=== PATIENT | female | born 1950 ===

== ENCOUNTER 2017-01-20 15:37 | Emergency (ER) | payer MEDICARE, OTHER ==
[2017-01-20 15:47] VITALS: TEMP 97.8; O2SAT 100
--- NOTE | 2017-01-20 16:48 | C.PDOC ---
History Of Present Illness 66 yr old female presents to the ER for evaluation of itchy rash to the torso for the past 2 days. Patient denies new soap, detergents, fever, chills, chest pain, SOB, nausea, vomiting, weakness or numbness. Time Seen by Provider: 01/20/17 16:21 Chief Complaint (Nursing): Abnormal Skin Integrity History Per: Patient History/Exam Limitations: no limitations Onset/Duration Of Symptoms: Days (2) Current Symptoms Are (Timing): Still Present Past Medical History Reviewed: Historical Data, Nursing Documentation, Vital Signs Vital Signs: Last Vital Signs Temp 97.8 F 01/20/17 15:45 Pulse 85 01/20/17 17:10 Resp 18 01/20/17 17:10 BP 125/68 01/20/17 17:10 Pulse Ox 100 01/20/17 17:10 - Medical History PMH: Kidney Stones, Chronic Kidney Disease Surgical History: Appendectomy - [facility] Procedures REMOVAL OF INTRALUMINAL DEVICE FROM [facility]RETER, ENDO (06/07/16) Family History: States: No Known Family Hx - Social History Hx Alcohol Use: No Hx Substance Use: No - Immunization History Hx Tetanus Toxoid Vaccination: No Hx Influenza Vaccination: No Hx Pneumococcal Vaccination: No Review Of Systems Except As Marked, All Systems Reviewed And Found Negative. Constitutional: Negative for: Fever, Chills Cardiovascular: Negative for: Chest Pain Respiratory: Negative for: Shortness of Breath Gastrointestinal: Negative for: Nausea, Vomiting Skin: Positive for: Rash (Itchy rash diffusely to the torso) Neurological: Negative for: Weakness, Numbness Physical Exam - Physical Exam Appears: Non-toxic, No Acute Distress Skin: Warm, Dry, Rash (Maculopapular, erythematous rashe diffusely to the abdomen and back. No superinfection. Excoriated lesions. No vesicles. No involvment of the palms or soles.) Head: Atraumatic, Normacephalic Eye(s): bilateral: Normal Inspection, PERRL, EOMI Ear(s): Bilateral: Normal Oral Mucosa: Moist Throat: Normal, No Erythema, No Exudate, No Drooling Neck: Normal, Normal ROM, Supple Cardiovascular: Rhythm Regular, No Murmur Respiratory: Normal Breath Sounds, No Rales, No Rhonchi, No Stridor, No Wheezing Extremity: Normal ROM, No Swelling Neurological/Psych: Oriented x3, Normal Speech, Normal Motor, Normal Sensation ED Course And Treatment O2 Sat by Pulse Oximetry: 100 (RA) Pulse Ox Interpretation: Normal Medical Decision Making Medical Decision Making: IMPRESSION: Rash PLAN: * Claritin PO * Prednisone PO Disposition - Disposition Disposition: HOME/ ROUTINE Disposition Time: 16:45 Condition: STABLE Additional Instructions: follow up with your doctor in 2 days call to make an appointment take medications as prescribed return to ER if symptoms worsens or progress Prescriptions: Loratadine [Claritin] 10 mg PO DAILY PRN #15 tab PRN Reason: Other predniSONE [predniSONE Tab] 50 mg PO DAILY #4 tab Instructions: Contact Dermatitis (ED), Acute Rash (ED) Forms: General Discharge Instructions, [facility] (Scottish) - Clinical Impression Clinical Impression: Contact dermatitis - Scribe Statement The provider has reviewed the documentation as recorded by the Elizabeth Mancia Provider Attestation: All medical record entries made by the Elizabeth were at my direction and personally dictated by me. I have reviewed the chart and agree that the record accurately reflects my personal performance of the history, physical exam, medical decision making, and the department course for this patient. I have also personally directed, reviewed, and agree with the discharge instructions and disposition.
--- NOTE | 2017-01-20 16:59 | C.PDOC ---
Time Seen by Provider: 01/20/17 16:21 Chief Complaint (Nursing): Abnormal Skin Integrity Past Medical History Vital Signs: Last Vital Signs Temp 97.8 F 01/20/17 15:45 Pulse 88 01/20/17 15:45 Resp 20 01/20/17 15:45 BP 123/74 01/20/17 15:45 Pulse Ox 100 01/20/17 15:45 - Medical History PMH: Kidney Stones, Chronic Kidney Disease Surgical History: Appendectomy - [facility] Procedures REMOVAL OF INTRALUMINAL DEVICE FROM [facility]RETER, ENDO (06/07/16) Family History: States: Unknown Family Hx - Social History Hx Alcohol Use: No Hx Substance Use: No - Immunization History Hx Tetanus Toxoid Vaccination: No Hx Influenza Vaccination: No Hx Pneumococcal Vaccination: No ED Course And Treatment O2 Sat by Pulse Oximetry: 100 Disposition Counseled Patient/Family Regarding: Diagnosis, Need For Followup, Rx Given - Disposition Disposition: HOME/ ROUTINE Disposition Time: 17:00 Condition: STABLE Additional Instructions: follow up with your doctor in 2 days call to make an appointment take medications as prescribed return to ER if symptoms worsens or progress Prescriptions: Loratadine [Claritin] 10 mg PO DAILY PRN #15 tab PRN Reason: Other predniSONE [predniSONE Tab] 50 mg PO DAILY #4 tab Instructions: Acute Rash (ED), Contact Dermatitis (ED) Forms: [facility] (Luxembourgish), General Discharge Instructions - Clinical Impression Clinical Impression: Contact dermatitis
[2017-01-20 17:11] VITALS: BP 125/68; PULSE 85; RESP 18
== END 2017-01-20 17:10 | disposition home or self-care (01) ==
LOC: C.ER 15:37
DX: L25.9 Unspecified contact dermatitis, unspecified cause (principal)

== ENCOUNTER 2017-03-17 12:36 | Emergency (ER) | payer MEDICARE, OTHER ==
[2017-03-17 13:13] VITALS: BMI 20.9
[2017-03-17 13:16] VITALS: BP 123/80; PULSE 86; RESP 18; TEMP 98.1; O2SAT 100
[2017-03-17] MEDS ORDERED: Permethrin 1% Kit 59 ML BOTTLE TOP ONE (13:23)
--- NOTE | 2017-03-17 13:35 | C.PDOC ---
History Of Present Illness 66 y/o female brought by ambulance from a detention in [place] to the ER for evaluation of possible bed bugs or scabies. Patient reports that she has dry skin. She denies that she has any bed bugs or scabies. Of note, patient took a shower with Nix in the ER. There was no discovery of bed bugs or scabies by the nurse. Time Seen by Provider: 03/17/17 13:15 Chief Complaint (Nursing): Medical Clearance History Per: Patient History/Exam Limitations: no limitations Past Medical History Reviewed: Historical Data, Nursing Documentation, Vital Signs Vital Signs: Last Vital Signs Temp 98.1 F 03/17/17 12:40 Pulse 86 03/17/17 12:40 Resp 18 03/17/17 12:40 BP 123/80 03/17/17 12:40 Pulse Ox 100 03/17/17 16:55 - Medical History PMH: Kidney Stones, Chronic Kidney Disease Surgical History: Appendectomy - [facility] Procedures REMOVAL OF INTRALUMINAL DEVICE FROM [facility]RETER, ENDO (06/07/16) Family History: States: No Known Family Hx - Social History Hx Alcohol Use: No Hx Substance Use: No - Immunization History Hx Tetanus Toxoid Vaccination: No Hx Influenza Vaccination: No Hx Pneumococcal Vaccination: No Review Of Systems Except As Marked, All Systems Reviewed And Found Negative. Constitutional: Negative for: Fever, Chills Gastrointestinal: Negative for: Nausea, Vomiting, Diarrhea Skin: Positive for: Other (Dry Skin) Neurological: Negative for: Weakness, Numbness Physical Exam - Physical Exam Appears: Non-toxic, No Acute Distress, Other (awake, alert, cooperative) Skin: Normal Color, Warm, No Rash Head: Atraumatic, Normacephalic Eye(s): bilateral: Normal Inspection, PERRL Nose: Normal Oral Mucosa: Moist Neck: Supple Chest: Symmetrical Extremity: Normal ROM Neurological/Psych: Oriented x3, Normal Speech, Normal Cognition, Normal Motor, Normal Sensation ED Course And Treatment O2 Sat by Pulse Oximetry: 100 (RA) Pulse Ox Interpretation: Normal Medical Decision Making Medical Decision Making: Impression: Medical Clearance Plan: --Nix Kit Disposition Counseled Patient/Family Regarding: Need For Followup - Disposition Referrals: [facility] [Outside] Disposition: HOME/ ROUTINE Disposition Time: 13:33 Condition: STABLE Additional Instructions: Follow up with your doctor or our clinic. We found no evidence of bed bugs or scabies. Forms: [facility] (Uzbek), General Discharge Instructions - Clinical Impression Clinical Impression: Medical assessment - Scribe Statement The provider has reviewed the documentation as recorded by the Scribe Christelle Freeman Provider Attestation: All medical record entries made by the Scribe were at my direction and personally dictated by me. I have reviewed the chart and agree that the record accurately reflects my personal performance of the history, physical exam, medical decision making, and the department course for this patient. I have also personally directed, reviewed, and agree with the discharge instructions and disposition.
== END 2017-03-17 14:35 | disposition home or self-care (01) ==
LOC: C.ER 12:36
DX: Z04.9 Encounter for examination and observation for unspecified reason (principal)

== ENCOUNTER 2017-04-22 11:14 | Emergency (ER) | payer MEDICARE, OTHER ==
[2017-04-22 11:36] VITALS: BMI 19.5
[2017-04-22 11:39] VITALS: RESP 18; TEMP 98.2
[2017-04-22] MEDS ORDERED: Albuterol-Ipratrop 3 mg / 0.5 (3 ml) UD IH STA (12:49)
[2017-04-22] MEDS ORDERED: Albuterol-Ipratrop 3 mg / 0.5 (3 ml) UD ONE (12:55)
--- NOTE | 2017-04-22 15:21 | RAD ---
HISTORY: Cough x 2 weeks COMPARISON: Correlation made with CT scan abdomen pelvis 06/07/2016 which imaged both lung bases. TECHNIQUE: Chest PA and lateral FINDINGS: LUNGS: No mild bibasilar atelectasis and or scarring changes. PLEURA: No significant pleural effusion identified. No pneumothorax apparent. CARDIOVASCULAR: Normal. OSSEOUS STRUCTURES: No significant abnormalities. VISUALIZED UPPER ABDOMEN: Normal. OTHER FINDINGS: None. IMPRESSION: Mild bibasilar atelectasis or scarring.
--- NOTE | 2017-04-22 15:28 | C.PDOC ---
Time Seen by Provider: 04/22/17 12:42 Chief Complaint (Nursing): Cough, Cold, Congestion History Per: Patient Onset/Duration Of Symptoms: Days (about 2 weeks) Current Symptoms Are (Timing): Still Present Associated Symptoms: Cough, Sputum Severity: Moderate Additional History Per: Prior Records Past Medical History Reviewed: Historical Data, Nursing Documentation, Vital Signs Vital Signs: Last Vital Signs Temp 98.2 F 04/22/17 11:36 Pulse 81 04/22/17 11:36 Resp 18 04/22/17 11:36 BP 114/73 04/22/17 11:36 Pulse Ox 96 04/22/17 11:36 - Medical History PMH: Kidney Stones, Chronic Kidney Disease Surgical History: Appendectomy - [facility] Procedures REMOVAL OF INTRALUMINAL DEVICE FROM URETER, ENDO (06/07/16) Family History: States: Unknown Family Hx - Social History Hx Tobacco Use: No Hx Alcohol Use: No Hx Substance Use: No - Immunization History Hx Tetanus Toxoid Vaccination: No Hx Influenza Vaccination: No Hx Pneumococcal Vaccination: No Review Of Systems Except As Marked, All Systems Reviewed And Found Negative. Constitutional: Negative for: Fever Cardiovascular: Negative for: Chest Pain Respiratory: Positive for: Cough, Sputum. Negative for: Shortness of Breath, Hemoptysis Gastrointestinal: Negative for: Vomiting, Abdominal Pain Genitourinary: Negative for: Dysuria Musculoskeletal: Negative for: Neck Pain, Back Pain Skin: Negative for: Rash Neurological: Negative for: Weakness, Numbness Physical Exam - Physical Exam Appears: Non-toxic, No Acute Distress Skin: Normal Color, Warm, Dry, No Rash Head: Atraumatic, Normacephalic Eye(s): bilateral: Normal Inspection, PERRL, EOMI Neck: Normal ROM, Supple Cardiovascular: Rhythm Regular Respiratory: No Accessory Muscle Use, Rhonchi Gastrointestinal/Abdominal: Soft, No Tenderness Back: No CVA Tenderness Extremity: Normal ROM, No Pedal Edema, No Calf Tenderness Neurological/Psych: Oriented x3, Normal Motor, Normal Sensation ED Course And Treatment O2 Sat by Pulse Oximetry: 96 Pulse Ox Interpretation: Normal - Radiology CXR: Viewed By Me, Read By Radiologist CXR Interpretation: Yes: No Acute Disease Progress - Interventions Interventions:: Observation - Medications Administered Inhaled nebulized: Anticholinergic, Beta-2 agonist - Data Reviewed Data Reviewed: Diagnostic imaging, Old records - Patient Status Patient status: Mostly improved - Continuity of Care Discussed patient case with:: Patient, ED Nurse - Patient Plan Patient Plan: Discharge, F/U with PCP, Continue present meds Disposition Counseled Patient/Family Regarding: Studies Performed, Diagnosis, Need For Followup, Rx Given - Disposition Disposition: HOME/ ROUTINE Disposition Time: 15:28 Condition: IMPROVED Additional Instructions: Follow up with your doctor this week. Return to the ER if you develop fever, shortness of breath, worsening of symptoms or if you have any other concerns. Prescriptions: Albuterol HFA [Ventolin HFA 90 mcg/actuation (8 g)] 2 puff IH Q4 PRN #1 unit PRN Reason: Cough And Congestion Azithromycin [Zithromax] 1 dose PO DAILY #1 pkt Instructions: Acute Bronchitis, Adult (DC) - Clinical Impression Clinical Impression: Acute bronchitis
[2017-04-22 16:00] VITALS: BP 115/78; PULSE 78; O2SAT 95
== END 2017-04-22 15:59 | disposition home or self-care (01) ==
LOC: C.ER 11:14
DX: J20.9 Acute bronchitis, unspecified (principal)